=== PATIENT | female | born 1995 | race Hispanic/Latino ===

== ENCOUNTER 2020-11-24 16:56 | Emergency (ER) | payer SELFPAY ==
[2020-11-24 18:17] LABS: #Basophils 0.1 thou/uL (0.0-0.2); #Eosinphils 0.1 thou/uL (0.0-0.7); #Lymphocytes 1.9 thou/uL (1.20-3.40); #Monocytes 0.6 thou/uL (0.11-0.59); #Neutrophils 5.5 thou/uL (1.40-6.50); %Basophils 1.1 % (0.0-1.0); %Eosinophils 0.7 % (0.0-10.0); %Monocytes 7.1 % (0.0-10.0); %Neutrophils 68.1 % (42.0-75.0); Hemoglobin 13.4 g/dL (12.0-16.0); Mean Corpuscular HGB CONC 34.4 g/dL (32.0-36.0); Mean Corpuscular Hemoglobin 31.9 pg (27.0-31.0); Mean Corpuscular Volume 92.7 fL (78.0-98.0); Mean Platelet Volume 9.8 fL (7.4-10.4); Platelet Count 200 thou/uL (130-400); RBC Distribution Width 11.7 % (11.5-14.5)
--- NOTE | 2020-11-24 19:37 | ULT ---
Exam: Endovaginal pelvic ultrasound History: Left lower quadrant pain. Quantitative HCG 22,694 TECHNIQUE: Endovaginal imaging of the pelvis is performed. Ovaries are interrogated with grayscale, c olor flow, Doppler imaging and spectral waveform analysis. FINDINGS: Uterus is identified, measuring 5.4 x 5.3 x 8.9 cm. Within the endometrium, there is a anec hoic focus with a mean sac diameter of 1.1 cm corresponding to gestational age of 5 weeks 6 days. Yolk sac is identified. pole is not appreciated. No free fluid Left ovary has a normal echotexture with a dominant cyst. Cyst measures 4.0 x 3.0 x 3.5 cm. Overall t he left ovary measures 5.0 x 3.5 x 4.5 cm. Right ovary has a normal echotexture, measuring 1.4 x 2.9 x 1.6 cm Ovarian Doppler: There is flow along the periphery of the cyst occupying the left ovary. There is abhinav w in the right ovarian parenchyma. IMPRESSION: 1. Gestational sac with yolk sac noted in the endometrium. Gestational age by sac diameter is 5 weeks 6 days. Findings may represent an early intrauterine gestation. pole is not appreciated at this time. Follow-up ultrasound and serial beta-HCGs are recommended 2. Large cyst in the left ovary which can be followed up on serial ultrasounds. Transcribed Date/Time: 11/24/2020 7:40 PM
[2020-11-24 20:14] LABS: ALT (SGPT) 44 U/L (8-55); AST (SGOT) 47 U/L (5-34); Albumin 4.3 g/dL (3.5-5.0); Alkaline Phosphatase 53 U/L (40-110); Anion Gap 14 mmol/L (10-20); BUN (Urea Nitrogen) 12 mg/dL (7.0-18.7); Bilirubin, Total 0.7 mg/dL (0.2-1.2); Calc. Creatinine Clearance 0 mL/min (70-130); Calcium 8.9 mg/dL (7.8-10.44); Carbon Dioxide 21 mmol/L (22-29); Chloride 105 mmol/L (98-107); Globulin 2.9 g/dL (2.4-3.5); Glucose 76 mg/dL (70-105); Lipase 26 U/L (8-78); Potassium 3.1 mmol/L (3.5-5.1); Protein, Total 7.2 g/dL (6.0-8.3); Sodium 137 mmol/L (136-145)
[2020-11-24 20:47] LABS: Bilirubin Negative (Negative); Blood, Urine Negative (Negative); Clarity Clear (Clear); Glucose, Urine (Dipstick) Normal (Negative); Ketone, Urine 60 mg/dL (Negative); Leukocyte Negative Leu/uL (Negative); Nitrite Negative (Negative); Protein, Urine (Dipstick) Negative (Neg-Trace); Specific Gravity, Urine 1.013 (1.002-1.036); Urobilinogen Normal mg/dL (Less than 2)
[2020-11-24] MEDS ORDERED: Potassium Chloride 20 MEQ TAB ONE (20:52)
[2020-11-28 21:57] LABS: Chlamydia by PCR Not Detected (NotDetected); GC by PCR Not Detected (NotDetected)
== END 2020-11-24 21:22 | disposition home or self-care (01) ==
LOC: ERS 16:56
DX: O23.591 Infection of other part of genital tract in pregnancy, first trimester (principal); O99.281 Endocrine, nutritional and metabolic diseases complicating pregnancy, first trimester; E87.6 Hypokalemia; Z3A.01 Less than 8 weeks gestation of pregnancy
CPT/HCPCS: 36415; 76856; 80053; 81003; 83690; 84702; 85025; 86900; 86901; 87480; 87491; 87510; 87591; 87660

== ENCOUNTER 2021-03-18 16:03 | Outpatient (CLI) | payer OTHER | END 2021-03-18 16:04 | disposition home or self-care (01) | LOC: BICULT 16:03 | PROVIDERS: ATTEND Family Medicine | DX: Z34.02 Encounter for supervision of normal first pregnancy, second trimester (principal); Z3A.22 22 weeks gestation of pregnancy | CPT/HCPCS: 76805 ==